=== PATIENT | male | born 1940 | race Caucasian/White ===

== ENCOUNTER 2020-09-01 07:30 | Outpatient (CLI) | payer MEDICARE ==
--- NOTE | 2020-09-01 09:45 | MRI Report ---
PROCEDURE: Lumbar Spine W/O INDICATIONS: LOW BACK PAIN W/PROGRESSIVE SCIATICA AND LEG PAIN TECHNIQUE: Noncontrast sagittal T1 spin echo and T2 fast echo, sagittal STIR, axial T1 and T2 fast spin echo thr ough the lumbar spine. In cases with scoliosis, additional coronal T2 fast spin echo may be performe d. COMPARISON: None. FINDINGS: Image quality: Diagnostic, with note made of motion artifact. Alignment and Curvature: There is normal bony alignment. Bone Marrow: Marrow is of normal overall signal. No acute vertebral body compression fractures. Spinal Cord: Conus medullaris terminates at the T12-L1 level. Visualized cord demonstrates normal s ignal and size. Paraspinous Soft Tissues: No paravertebral masses. Left kidney parapelvic cysts are incidentally no alejandra. T12-L1: Mild loss of disc height and disc signal are seen. No significant neural foraminal or cristian tral canal narrowing can be seen. L1-L2: The disc height is well-preserved. There is loss of disc signal seen. Mild disc bulge is s een. Moderate bilateral neuroforaminal narrowing is seen, left worse than right. Minimal central can al narrowing is seen. L2-L3: Mild loss of disc height and disc signal are seen. Moderate disc bulge is seen, which is ec centric to the right. There is a central disc protrusion seen. Mild facet hypertrophy is seen. Ther e is moderate left-sided and moderate to severe right-sided neuroforaminal narrowing seen at this lev el. Minimal associated compression can be seen upon the exiting nerve roots. At least moderate centra l canal narrowing is seen. L3-L4: Loss of disc signal is seen. Minimal loss of disc height is seen. Moderate to prominent disc bulge is seen, with a central disc protrusion. Mild to moderate facet hypertrophy is seen at this le emna. There is moderate to severe bilateral neuroforaminal narrowing seen, left worse than right. Comp ression is seen upon the exiting nerve roots. Moderate to severe central canal narrowing is seen, as on series 701 image 19. L4-L5: Mild loss of disc height and disc signal are seen. Moderate disc bulge is seen at this leve l. There is a mild central disc protrusion. Moderate facet hypertrophy is seen. There is moderate to severe bilateral neuroforaminal narrowing seen, left worse than right. Compression is seen upon th e exiting nerve roots. Moderate central canal narrowing is seen. L5-S1: The disc height and disc signal are well preserved. Minimal disc bulge is seen. Mild facet hypertrophy is seen. There is moderate bilateral neuroforaminal narrowing seen, left worse than righ t. No significant central canal narrowing is seen. IMPRESSION: Multiple levels of lumbar spine degenerative change are seen, which are overall worst at the L3-L4 level, where there is moderate to severe central canal narrowing. Moderate to severe bilateral neuroforaminal narrowing is seen at L3-L4 and L4-L5, and there is modera te to severe right-sided and moderate left-sided neuroforaminal narrowing seen at L2-L3. There is ass ociated compression upon the exiting nerve roots. Reviewed by: Karl Frias MD on 09/01/2020 8:44 AM [place] Approved by: Karl Frias MD on 09/01/2020 8:44 AM [facility] Station ID: [id number]
== END 2020-09-01 07:31 | disposition home or self-care (01) ==
LOC: DI 07:30
PROVIDERS: ATTEND Family Medicine
DX: M51.36 Other intervertebral disc degeneration, lumbar region (principal); M48.061 Spinal stenosis, lumbar region without neurogenic claudication; M47.816 Spondylosis without myelopathy or radiculopathy, lumbar region; M47.817 Spondylosis without myelopathy or radiculopathy, lumbosacral region; M51.35 Other intervertebral disc degeneration, thoracolumbar region
CPT/HCPCS: 72148

== ENCOUNTER 2021-07-18 18:49 | Emergency (ER) | payer MEDICARE ==
[2021-07-18 19:12] VITALS: BP 161/68
== END 2021-07-18 19:13 | disposition left against medical advice (07) ==
LOC: ED 18:49
DX: Z53.21 Procedure and treatment not carried out due to patient leaving prior to being seen by health care provider (principal)

== ENCOUNTER 2024-05-04 11:59 | Outpatient (CLI) | payer MEDICARE | END 2024-05-04 23:59 | disposition critical access hospital (66) | LOC: EMS 11:59 | DX: S79.922A Unspecified injury of left thigh, initial encounter (principal); V18.0XXA Pedal cycle driver injured in noncollision transport accident in nontraffic accident, initial encounter; Y93.55 Activity, bike riding; Y92.838 Other recreation area as the place of occurrence of the external cause | CPT/HCPCS: A0425; A0427 ==

== ENCOUNTER 2024-05-04 12:14 | Inpatient (IN) | payer MEDICARE ==
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
[2024-05-04] MEDS ORDERED: ONDANSETRON 4 MG/2 ML VIAL IVP PRN ×2 (12:49→16:26)
[2024-05-04] MEDS ORDERED: HYDROcod/ACETAM 5/325 MG TABLET PO PRN (12:49)
[2024-05-04] MEDS ORDERED: ACETAMINOPHEN 325 MG TABLET PO PRN (12:49)
[2024-05-04] MEDS ORDERED: HYDROmorphone 0.5 MG/0.5 ML SYRINGE IVP PRN ×2 (12:49→16:26)
[2024-05-04] MEDS ORDERED: ONDANSETRON ODT 4 MG TABLET TL PRN (12:49)
--- NOTE | 2024-05-04 13:02 | XRAY Report ---
PROCEDURE: Hip w/Pelvis 2-3V LT INDICATIONS: hip inj TECHNIQUE: An AP view the pelvis and a crosstable lateral of the hip were acquired. COMPARISON: None. FINDINGS: Bones: Comminuted, displaced intertrochanteric fracture of the left hip. No dislocation. No suspicio us bony lesions. Soft tissues: No suspicious soft tissue calcifications or masses. IMPRESSION: Comminuted, displaced intratrochanteric fracture of the left hip Reviewed by: Shayne Christianson MD on 05/04/2024 1:01 PM PDT Approved by: Shayne Christianson MD on 05/04/2024 1:01 PM PDT Station ID: [id number]
[2024-05-04 13:11] LABS: BASOPHILS % (AUTO) 0.2 %; EOSINOPHILS # (AUTO) 0.1 10^3/uL (0.0-0.7); EOSINOPHILS % (AUTO) 0.6 %; HCT - HEMATOCRIT 35.9 % (42.0-52.0); HGB - HEMOGLOBIN 11.8 g/dL (14.0-18.0); LYMPHOCYTES # (AUTO) 0.9 10^3/uL (1.5-3.5); LYMPHOCYTES % (AUTO) 8.8 %; MEAN CORPUSCULAR HEMOGLOBIN 29.6 pg (27.0-31.0); MEAN CORPUSCULAR HGB CONC 32.9 g/dL (32.0-36.0); MEAN PLATELET VOLUME 10.3 fL (7.4-11.4); MONOCYTES # (AUTO) 0.5 10^3/uL (0.0-1.0); MONOCYTES % (AUTO) 5.1 %; NEUTROPHILS # (AUTO) 8.4 10^3/uL (1.5-6.6); PLT - PLATELET COUNT 154 10^3/uL (130-450); RED BLOOD COUNT 3.99 10^6/uL (4.70-6.10); RED CELL DISTRIBUTION WIDTH 12.7 % (12.0-15.0); WHITE BLOOD COUNT 9.9 x10^3/uL (4.8-10.8)
--- NOTE | 2024-05-04 13:16 | PHARMACY PROGRESS NOTE ---
- Best Possible Medication History Admit Date and Time: 05/04/24 1244 Processed by: Pharmacy Medications reviewed in ED?: Yes Medication History completed: Yes Patient Interview: Completed Secondary Source(s): Spouse/Significant other, Insurance records As the person ultimately responsible for medication therapy, providers are able to order a medication from an existing home medication list in [facility] via the "Reconcile Routine" prior to Confirmation of that medication by developer support engineer. Such practice is discouraged except when the physician, in their clinical judgment, deems that a medical need exists for a medication without regard to previous use.
[2024-05-04 13:17] LABS: INR 1.1 (0.8-1.2); PT - PROTHROMBIN TIME 12.4 secs (9.9-12.6)
[2024-05-04 13:28] LABS: ALBUMIN 3.6 g/dL (3.2-5.5); ALBUMIN/GLOBULIN RATIO 1.6 (1.0-2.2); BILIRUBIN,TOTAL 0.6 mg/dL (0.2-1.0); CALCIUM 9.1 mg/dL (8.5-10.3); CREATININE 1.6 mg/dL (0.6-1.3); POTASSIUM 4.5 mmol/L (3.5-4.5); TOTAL PROTEIN 5.9 g/dL (6.4-8.9)
[2024-05-04] MEDS: HYDROmorphone 1 MG/ML CARPUJECT IVP STA (13:43)
[2024-05-04] MEDS: SODIUM CHLORIDE FLUSH 0.9% 10 ML SYRINGE IVP PRN (13:52)
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
[2024-05-04] MEDS ORDERED: fentaNYL 250 MCG/5 ML VIAL IVP PRN (16:10)
[2024-05-04] MEDS ORDERED: DEXAMETHASONE 4 MG/ML VIAL ONE (16:11)
[2024-05-04] MEDS ORDERED: PROPOFOL 200 MG/20 ML VIAL IVP ONE (16:11)
[2024-05-04] MEDS ORDERED: ROCURONIUM 50 MG/5 ML VIAL ONE (16:11)
[2024-05-04] MEDS ORDERED: ROPIVACAINE 0.2% PF 10 ML VIAL ONE (16:11)
[2024-05-04] MEDS ORDERED: ONDANSETRON 4 MG/2 ML VIAL ONE (16:11)
[2024-05-04] MEDS ORDERED: fentaNYL 100 MCG/2 ML VIAL ONE (16:12)
[2024-05-04] MEDS ORDERED: ceFAZolin 2 GM VIAL ONE (16:13)
[2024-05-04] MEDS ORDERED: MIDAZOLAM 2 MG/2 ML VIAL ONE (16:18)
[2024-05-04] MEDS ORDERED: fentaNYL 100 MCG/2 ML VIAL IVP PRN (16:26)
[2024-05-04] MEDS ORDERED: NALOXONE 0.4 MG/ML VIAL IVP PRN (16:26)
[2024-05-04] MEDS ORDERED: ePHEDrine 50 MG/ML VIAL IVP PRN (16:26)
[2024-05-04] MEDS ORDERED: ATROPINE ABBOJECT 1 MG/10 ML SYRINGE IVP PRN (16:26)
[2024-05-04] MEDS ORDERED: MORPHINE 2 MG/ML CARPUJECT IVP PRN (16:26)
--- NOTE | 2024-05-04 16:26 | ANESTHESIA ---
Pre-Anesthesia VS, & Labs - Diagnosis Diagnosis Left intertrochancteri/subtrochancteric hip fracture - Procedure L hip nailing Vital Signs: Temp Pulse Resp BP Pulse Ox O2 Flow Rate 37.1 C 50 L 14 148/56 H 96 05/04/24 14:22 05/04/24 14:22 05/04/24 14:22 05/04/24 14:22 05/04/24 14:22 Height: 5 ft 9 in Weight (kg): 79.379 kg Body Mass Index: 25.8 BMI Classification: Overweight - NPO >8 hours - Lab Results Current Lab Results: Laboratory Tests 05/04/24 13:06: Sodium 138, Potassium 4.5, Chloride 107, Carbon Dioxide 27, Anion Gap 4.0 L, BUN 28 H, Creatinine 1.6 H, Estimated GFR (MDRD) 42 L, Glucose 101, Calcium 9.1, Total Bilirubin 0.6, AST 16, ALT 9 L, Alkaline Phosphatase 45, Total Protein 5.9 L, Albumin 3.6, Globulin 2.3, Albumin/Globulin Ratio 1.6 05/04/24 13:06: PT 12.4, INR 1.1 05/04/24 13:06: WBC 9.9, RBC 3.99 L, Hgb 11.8 L, Hct 35.9 L, MCV 90.0, MCH 29.6, MCHC 32.9, RDW 12.7, Plt Count 154, MPV 10.3, Neut # (Auto) 8.4 H, Lymph # (Auto) 0.9 L, [place] # (Auto) 0.5, Eos # (Auto) 0.1, Baso # (Auto) 0.0, Absolute Nucleated RBC 0.00, Nucleated RBC % 0.0 Fish Bones: 05/04/24 13:06 05/04/24 13:06 Home Medications and Allergies Home Medications: Ambulatory Orders Vit A/Vit C/Vit E/Zinc/Copper [Eye Multivitamin Tablet] 1 each PO BID 05/04/24 Active Medications Acetaminophen (Acetaminophen 325 Mg Tablet) 650 mg PO Q4HR PRN PRN Reason: Pain 1 to 4, or Fever Hydrocodone Bitart/Acetaminophen (Hydrocod/Acetam 5/325 Mg Tablet) 1 tab PO Q4HR PRN PRN Reason: Pain 5 to 7 Amlodipine Besylate (Amlodipine 5 Mg Tablet) 10 mg PO HS [facility] Aspirin (Aspirin Ec 81 Mg Tablet) 81 mg PO BID [facility] Docusate Sodium (Docusate Sodium 100 Mg Capsule) 100 mg PO BID PRN PRN Reason: Constipation Fentanyl (Fentanyl 250 Mcg/5 Ml Vial) 25 mcg IVP Q2HR PRN PRN Reason: Severe Breakthrough pain(8-10) Gabapentin (Gabapentin 300 Mg Capsule) 1,200 mg PO HS [facility] Hydromorphone HCl (Hydromorphone 0.5 Mg/0.5 Ml Syringe) 0.5 mg IVP Q2H PRN PRN Reason: Pain 8 to 10 Sodium Chloride (Normal Saline 0.9%) 1,000 mls @ 100 mls/hr IV .Q10H [facility] Stop: 05/05/24 00:59 Cefazolin Sodium 2 gm/ Sodium (Chloride) 100 mls @ 200 mls/hr IV Q8H [facility] Stop: 05/05/24 03:29 Sodium Chloride (Normal Saline 0.9%) 1,000 mls @ 80 mls/hr IV .[id number] [facility] Ondansetron HCl (Ondansetron Odt 4 Mg Tablet) 4 mg TL Q6HR PRN PRN Reason: Nausea / Vomiting Ondansetron HCl (Ondansetron 4 Mg/2 Ml Vial) 4 mg IVP Q6HR PRN PRN Reason: Nausea / Vomiting Oxycodone HCl (Oxycodone 5 Mg Tablet) 5 mg PO Q6HR PRN PRN Reason: Severe Breakthrough pain(8-10) Pramipexole Dihydrochloride (Pramipexole 0.25 Mg Tablet) 1 mg PO HS [facility] Sodium Chloride (Sodium Chloride Flush 0.9% 10 Ml Syringe) 10 ml IVP PRN PRN PRN Reason: NEEDED PER PROVIDER ORDERS Last Admin: 05/04/24 13:52 Dose: 10 ml Sodium Chloride (Sodium Chloride Flush 0.9% 10 Ml Syringe) 10 ml IVP 0100,0900,1700 [facility] Tamsulosin HCl (Tamsulosin 0.4 Mg Capsule) 0.4 mg PO HS [facility] Gabapentin [Neurontin] 1,200 mg PO HS 07/18/21 Lisinopril [Zestril] 20 mg PO HS 07/18/21 Pramipexole Di-HCl [Mirapex] 1 mg PO HS 07/18/21 Tamsulosin [Flomax] 0.4 mg PO HS 07/18/21 amLODIPine [Norvasc] 10 mg PO HS 07/18/21 Vit A/Vit C/Vit E/Zinc/Copper [Eye Multivitamin Tablet] 1 each PO BID 05/04/24 Allergies/Adverse Reactions: Allergies Allergy/AdvReac Type Severity Reaction Status Date / Time No Known Drug Allergies Allergy Verified 05/04/24 12:51 Anes History & Medical History - Anesthetic History Anesthesia Complications: reports: No previous complications Family history of Anesthesia Complications: Denies Family history of Malignant Hyperthermia: Denies - Medical History Cardiovascular: reports: Hypertension Pulmonary: reports: None Gastrointestinal: reports: None Urinary: reports: Renal insuffiency Neuro: reports: Other (RLS) Musculoskeletal: reports: Gout, Other (significant compression L1-L5 with bulging discs, nerve compression, severe canal stenosis. see MRI 2022) Endocrine/Autoimmune: reports: None Skin: reports: None Smoking Status: Never smoker Psychosocial: reports: No issues indicated History of Cancer?: No - Surgical History General: reports: Other (B inguinal hernai repair at 3yo) Eyes Ears Nose Throat (EENT): reports: Tonsil/Adenoidectomy Exam General: Alert, Oriented x3, Cooperative Dental: WNL Mouth Openin Fingerbreadth Neck Mobility: Normal Mallampati classification: II Thyromental Distance: 4-6 cm Respiratory: Lungs clear Cardiovascular: Regular rate Plan Anesthesia Type: General, Fascia Iliaca Block Consent for Procedure(s) Verified and Reviewed: Yes Code Status: Attempt Resuscitation ASA classification: 2-Mild systemic disease Is this case an emergency?: Yes
[2024-05-04] MEDS ORDERED: LACTATED RINGERS 1,000 ML IV SCH (17:00)
[2024-05-04] MEDS ORDERED: ePHEDrine 50 MG/ML VIAL IVP ONE (17:08)
[2024-05-04] MEDS ORDERED: BUPIVACAINE 0.5%-EPI 1:200000 PF 10 ML VIAL ONE (17:19)
[2024-05-04] MEDS: BUPIVACAINE 0.5%-EPI 1:200000 PF 30 ML VIAL SUBQ ONE ×2 (17:22)
[2024-05-04] MEDS ORDERED: ACETAMINOPHEN 1,000 MG/100 ML 1,000 MG/100 ML BAG IV ONE (17:56)
[2024-05-04] MEDS ORDERED: NEOSTIGMINE 1 MG/1 ML 10 ML MDV ONE (18:08)
--- NOTE | 2024-05-04 18:35 | OPERATIVE REPORT ---
Operative Report - General Admit Date: 05/04/24 Procedure Date: 05/04/24 Planned Procedure: Closed reduction and long InterTAN nailing of left intertrochanteric/subtrochanteric hip fracture Pre-Op Diagnosis: Closed displaced left subtrochanteric/intertrochanteric hip fracture Procedure Performed: Closed reduction and long InterTAN nailing of left subtrochanteric/intertrochanteric hip fracture Post Op Diagnosis: Same - Procedure Note Primary Surgeon: Alpa Genao MD Secondary Surgeon: Regino Donohue< PA Anesthesia Provider: Gladys Grajeda CRNA Anesthesia Technique: General ET tube IV Fluids (mL): 1,200 Estimated Blood Loss (mL): 200 Complications: None - Other Other Information/Narrative: Description of procedure: Patient was taking to the operating room from the emergency room for his left hip surgery. After he was placed under a general anesthetic he was positioned supine on the [place] fracture table. His left lower extremity was then placed into axial traction with approximately a 10 degree internal rotation that. The right leg was then flexed at the hip and widely abducted. Leg was held in the well-leg flores. Fluoroscopic views were then taken of the left hip so we could see adequately that the hip fracture had been reduced nicely. We could also visualize the femoral head in both AP and lateral projections. We then prepped and draped the lateral aspect of the proximal thigh in usual fashion. Through an oblique skin incision we dissected down through the fascia Lotta to the tip of the greater trochanter. This is where we placed the threaded tip guidewire. Confirming its location fluoroscopically we then advanced this guidepin down to the level of the subtrochanteric region of the proximal femur. Its location and depth was confirmed both in the AP and lateral projections. We then used the 17 mm channel reamer to ream the proximal femur from the tip of the greater trochanter down to the subtrochanteric region. Removed the channel reamer and the ball and the guide. Next the ball-tipped guide was then inserted manually down the femoral canal to about the level of the superior border of the patella. Its intraosseous location was confirmed with AP and lateral projections proximally and distally. Satisfied with this we then proceeded this serially reamed the femoral canal using flexible reamers over our ball-tipped guide. Starting at the 9 mm reamer we advanced a 1 mm increments to 11 mm. Then we continued to enlarge the canal with the flexible reamers from 11-13 and half millimeter increments. This point we then selected our long InterTAN nail. It was a left nail 42 cm length (this measurement been made from the inserted ball-tipped guide), 125 degree angulation proximally. This nail was then attached to of the insertion guide. We then proceeded to insert the nail manually down the prepared femoral canal. Using the C arm fluoroscopy we advanced the nail with a mallet until the oblique hole of the proximal end of our nail was in line with the central axis of the femoral neck and head. Inserting our pin guide into the insertion apparatus we made this skin incision and advanced this pin guide with the trocar in place to the lateral femoral cortex. We then used the threaded tip guidewire under power to advance this guidepin through the proximal femur femoral neck and into the femoral head. It took several attempts to put the pin in the proper position AP and lateral projection. At the end of our insertion we were satisfied with the depth of the pin to within 3 to 4 mm in both AP and lateral projections and the sub near the subchondral bone of the femoral head and that the track was near the central axis of the femoral neck in both AP and lateral projection. The direct measuring guide was used and we determined 150 mm x 11 mm hip lag screw would be used. We then removed the pin guide and followed with the hip lag screw reamer. The femoral neck and femoral head was then reamed under power over our inserted guidepin. After removing our reamer we then inserted manually the selected single subtrochanteric hip lag screw through the proximal end of our inserted nail. Fluoroscopic views demonstrated good position and depth of our hip lag screw in both AP and lateral projections. The screw head was within 3 to 4 mm in both AP and lateral projections. Satisfied with the insertion and satisfied with the quality of of the fixation of our screw as we advanced it we then locked the proximal screw in the proximal end of our nail until it was snug and backed off 90 degrees. Then we used a ball-tipped guide to remove the insertion apparatus off the proximal end of our nail as well. Final x-rays were then taken in the AP and lateral projection at the hip as well as down toward the knee. We were satisfied with the reduction and impaction of our fracture in all views and satisfied with the intramedullary location of our nail. We then irrigated the wounds out thoroughly with saline. We closed the fascia jeanie layer in both incision using simple interrupted stitches of 2-0 Vicryl. Finally skin floridalma used approximate the skin edges. We then washed the wounds and remigio lied silver dressing to both wounds. Should be noted after we put the leg in traction the amount of traction did appear to compromise the circulation in the patient's toes and that they were cooler and appeared bluish in color. After we had inserted the nail and our hip lag screw we released the tension on the leg and the color of the toes pinked up nicely and became quite warm. The amount of time from the start of surgery until we released the tension on the leg was 40 minutes. Estimated blood loss: 20 mL Replacement: 1200 mL of crystalloid Intraoperative complications: None Plan: Patient will be advanced as tolerated with weightbearing as tolerated with a walker ambulation beginning tomorrow.
[2024-05-04] MEDS: LACTATED RINGERS 1,000 ML IV ONE (18:43)
--- NOTE | 2024-05-04 19:31 | XRAY Report ---
PROCEDURE: OR C-Arm Procedure INDICATIONS: fx FLUORO TIME: 0.8 MIN TECHNIQUE: 4 spot fluoroscopic intraoperative images of the left hip and femur. COMPARISON: Hip/pelvis radiographs 05/04/2024 FINDINGS: Intraoperative images demonstrate internal fixation of the proximal femoral fracture with intramedull alma nail and dynamic hip screw. Osseous alignment has improved. IMPRESSION: Expected intraoperative appearance of proximal femoral fixation hardware with improved osseous alignm ent. Reviewed by: Denzel Seay MD on 05/04/2024 7:30 PM PDT Approved by: Denzel Seay MD on 05/04/2024 7:30 PM PDT Station ID: [id number]
[2024-05-04] MEDS: SODIUM CHLORIDE 0.9% 1,000 ML IV SCH ×2 (19:49→19:50)
[2024-05-04] MEDS: ceFAZolin (2G) 2 GM in SODIUM CHLORIDE 0.9% MINIBAG 100 ML IV SCH (19:49)
[2024-05-04] MEDS: SODIUM CHLORIDE FLUSH 0.9% 10 ML SYRINGE IVP SCH (19:50)
[2024-05-04] MEDS: GABAPENTIN 300 MG CAPSULE PO SCH (21:36)
[2024-05-04] MEDS: PRAMIPEXOLE 0.25 MG TABLET PO SCH (21:36)
[2024-05-04] MEDS: TAMSULOSIN 0.4 MG CAPSULE PO SCH (21:36)
[2024-05-04] MEDS: amLODIPine 5 MG TABLET PO SCH (21:36)
[2024-05-05 06:17] LABS: BASOPHILS % (AUTO) 0.1 %; HCT - HEMATOCRIT 29.9 % (42.0-52.0); HGB - HEMOGLOBIN 9.8 g/dL (14.0-18.0); LYMPHOCYTES # (AUTO) 0.6 10^3/uL (1.5-3.5); LYMPHOCYTES % (AUTO) 5.7 %; MEAN CORPUSCULAR HEMOGLOBIN 29.4 pg (27.0-31.0); MEAN CORPUSCULAR HGB CONC 32.8 g/dL (32.0-36.0); MEAN CORPUSCULAR VOLUME 89.8 fL (80.0-94.0); MEAN PLATELET VOLUME 10.8 fL (7.4-11.4); MONOCYTES # (AUTO) 0.6 10^3/uL (0.0-1.0); MONOCYTES % (AUTO) 5.7 %; NEUTROPHILS # (AUTO) 9.5 10^3/uL (1.5-6.6); PLT - PLATELET COUNT 151 10^3/uL (130-450); RED BLOOD COUNT 3.33 10^6/uL (4.70-6.10); RED CELL DISTRIBUTION WIDTH 12.7 % (12.0-15.0); WHITE BLOOD COUNT 10.8 x10^3/uL (4.8-10.8)
[2024-05-05 06:33] LABS: CALCIUM 8.2 mg/dL (8.5-10.3); CREATININE 1.5 mg/dL (0.6-1.3); POTASSIUM 4.7 mmol/L (3.5-4.5)
--- NOTE | 2024-05-05 06:48 | ANESTHESIA POST OP EVALUATION ---
Anesthesia Post Eval - Post Anesthesia Eval Vitals: Last Vital Signs Temp 36.3 C L 05/05/24 04:04 Pulse 72 05/05/24 04:04 Resp 18 05/05/24 04:04 BP 96/52 L 05/05/24 04:04 Pulse Ox 94 05/05/24 04:04 O2 Flow Rate CV Function Including HR & BP: Stable Pain Control: Satisfactory Nausea & Vomiting: Negative Mental Status: Baseline Respiratory Status: Airway Patent Hydration Status: Satisfactory Anesthesia Complications: None
[2024-05-05] MEDS: polyethylene glycoL 3350 17 GM PACKET PO SCH (09:55)
[2024-05-05] MEDS: ASPIRIN EC 81 MG TABLET PO SCH (10:52)
--- NOTE | 2024-05-05 12:11 | PROVIDER PROGRESS NOTE ---
Subjective - Prog Note Date Prog Note Date: 05/05/24 Prog Note Time: 12:08 - Subjective Pt reports feeling: Improved Objective - Vital Signs/Intake & Output Vital Signs: Vital Signs x48h Temp Pulse Resp BP Pulse Ox 05/05/24 08:18 36.7 C 67 18 120/54 L 96 Intake & Output: Intake & Output 05/02/24 05/03/24 05/04/24 05/05/24 23:59 23:59 23:59 23:59 Intake Total 250 1690 Output Total 700 2750 Balance -450 -1060 - Lab Results Fish Bones: 05/05/24 05:46 05/05/24 05:46 Other Labs: Lab Results x24hrs 05/05/24 05/05/24 05/05/24 Range/Units 08:38 05:46 05:46 WBC (4.8-10.8) x10^3/uL RBC (4.70-6.10) 10^6/uL Hgb (14.0-18.0) g/dL Hct (42.0-52.0) % MCV (80.0-94.0) fL MCH (27.0-31.0) pg MCHC (32.0-36.0) g/dL RDW (12.0-15.0) % Plt Count (130-450) 10^3/uL MPV (7.4-11.4) fL Neut # (Auto) (1.5-6.6) 10^3/uL Lymph # (Auto) (1.5-3.5) 10^3/uL [place] # (Auto) (0.0-1.0) 10^3/uL Eos # (Auto) (0.0-0.7) 10^3/uL Baso # (Auto) (0.0-0.1) 10^3/uL Absolute Nucleated RBC x10^3/uL Nucleated RBC % /100WBC PT (9.9-12.6) secs INR (0.8-1.2) Sodium 135 (135-145) mmol/L Potassium 4.7 H (3.5-4.5) mmol/L Chloride 105 (101-111) mmol/L Carbon Dioxide 25 (21-32) mmol/L Anion Gap 5.0 L (6-13) BUN 23 H (6-20) mg/dL Creatinine 1.5 H (0.6-1.3) mg/dL Estimated GFR (MDRD) 45 L (>89) Glucose 137 H (74-104) mg/dL Calcium 8.2 L (8.5-10.3) mg/dL Total Bilirubin (0.2-1.0) mg/dL AST (10-42) IU/L ALT (10-60) IU/L Alkaline Phosphatase (42-121) IU/L Total Protein (6.4-8.9) g/dL Albumin (3.2-5.5) g/dL Globulin (2.1-4.2) g/dL Albumin/Globulin Ratio (1.0-2.2) Blood Type O POSITIVE Blood Type Recheck O POSITIVE Antibody Screen NEGATIVE 05/05/24 05/04/24 05/04/24 Range/Units 05:46 13:06 13:06 WBC 10.8 (4.8-10.8) x10^3/uL RBC 3.33 L (4.70-6.10) 10^6/uL Hgb 9.8 L (14.0-18.0) g/dL Hct 29.9 L (42.0-52.0) % MCV 89.8 (80.0-94.0) fL MCH 29.4 (27.0-31.0) pg MCHC 32.8 (32.0-36.0) g/dL RDW 12.7 (12.0-15.0) % Plt Count 151 (130-450) 10^3/uL MPV 10.8 (7.4-11.4) fL Neut # (Auto) 9.5 H (1.5-6.6) 10^3/uL Lymph # (Auto) 0.6 L (1.5-3.5) 10^3/uL [place] # (Auto) 0.6 (0.0-1.0) 10^3/uL Eos # (Auto) 0.0 (0.0-0.7) 10^3/uL Baso # (Auto) 0.0 (0.0-0.1) 10^3/uL Absolute Nucleated RBC 0.00 x10^3/uL Nucleated RBC % 0.0 /100WBC PT 12.4 (9.9-12.6) secs INR 1.1 (0.8-1.2) Sodium 138 (135-145) mmol/L Potassium 4.5 (3.5-4.5) mmol/L Chloride 107 (101-111) mmol/L Carbon Dioxide 27 (21-32) mmol/L Anion Gap 4.0 L (6-13) BUN 28 H (6-20) mg/dL Creatinine 1.6 H (0.6-1.3) mg/dL Estimated GFR (MDRD) 42 L (>89) Glucose 101 (74-104) mg/dL Calcium 9.1 (8.5-10.3) mg/dL Total Bilirubin 0.6 (0.2-1.0) mg/dL AST 16 (10-42) IU/L ALT 9 L (10-60) IU/L Alkaline Phosphatase 45 (42-121) IU/L Total Protein 5.9 L (6.4-8.9) g/dL Albumin 3.6 (3.2-5.5) g/dL Globulin 2.3 (2.1-4.2) g/dL Albumin/Globulin Ratio 1.6 (1.0-2.2) Blood Type Blood Type Recheck Antibody Screen 05/04/24 Range/Units 13:06 WBC 9.9 (4.8-10.8) x10^3/uL RBC 3.99 L (4.70-6.10) 10^6/uL Hgb 11.8 L (14.0-18.0) g/dL Hct 35.9 L (42.0-52.0) % MCV 90.0 (80.0-94.0) fL MCH 29.6 (27.0-31.0) pg MCHC 32.9 (32.0-36.0) g/dL RDW 12.7 (12.0-15.0) % Plt Count 154 (130-450) 10^3/uL MPV 10.3 (7.4-11.4) fL Neut # (Auto) 8.4 H (1.5-6.6) 10^3/uL Lymph # (Auto) 0.9 L (1.5-3.5) 10^3/uL [place] # (Auto) 0.5 (0.0-1.0) 10^3/uL Eos # (Auto) 0.1 (0.0-0.7) 10^3/uL Baso # (Auto) 0.0 (0.0-0.1) 10^3/uL Absolute Nucleated RBC 0.00 x10^3/uL Nucleated RBC % 0.0 /100WBC PT (9.9-12.6) secs INR (0.8-1.2) Sodium (135-145) mmol/L Potassium (3.5-4.5) mmol/L Chloride (101-111) mmol/L Carbon Dioxide (21-32) mmol/L Anion Gap (6-13) BUN (6-20) mg/dL Creatinine (0.6-1.3) mg/dL Estimated GFR (MDRD) (>89) Glucose (74-104) mg/dL Calcium (8.5-10.3) mg/dL Total Bilirubin (0.2-1.0) mg/dL AST (10-42) IU/L ALT (10-60) IU/L Alkaline Phosphatase (42-121) IU/L Total Protein (6.4-8.9) g/dL Albumin (3.2-5.5) g/dL Globulin (2.1-4.2) g/dL Albumin/Globulin Ratio (1.0-2.2) Blood Type Blood Type Recheck Antibody Screen - Other Results/Comments Other Results/Comments: Examination: Patient's hip dressing wounds are stable. Some mild pain with hip rotation noted. Patient moves his toes voluntarily. Sensation intact throughout. Good capillary filling noted. Patient apparently has been up ambulating weightbearing as tolerated with assistance to the bathroom. Laboratory: Hematocrit 30, Assessment/Plan - Problem List (1) Closed left hip fracture Impression: Patient doing well postoperatively. Continue weightbearing as tolerated on his left lower extremity. Walker ambulating weightbearing as tolerated per physical therapy. Qualifiers: Encounter type: initial encounter Qualified Code(s): S72.002A - Fracture of unspecified part of neck of left femur, initial encounter for closed fracture
--- NOTE | 2024-05-05 12:13 | PROVIDER PROGRESS NOTE ---
Assessment/Plan - Problem List (1) Closed left hip fracture Qualifiers: Qualified Code(s): S72.002A - Fracture of unspecified part of neck of left femur, initial encounter for closed fracture Assessment/Plan: (1) Closed left hip fracture Conclusion/Plan: --Underwent Closed reduction and long InterTAN nailing of left intertrochanteric/subtrochanteric hip fracture --DVT ppx with ASA --Continue to monitor post-op hemoglobin. --Plan for PT/OT on Tuesday. Qualifiers: Encounter type: initial encounter Qualified Code(s): S72.002A - Fracture of unspecified part of neck of left femur, initial encounter for closed fracture (2) CKD (chronic kidney disease) Conclusion/Plan: --Renal function at his baseline. (3) HTN (hypertension) Conclusion/Plan: --Continue home amlodipine. Blood pressures are normotensive today. Dispo: Inpatient until evaluated by PT/OT on Tuesday. - Current Meds Current Meds: Current Medications Generic Name Dose Route Start Last Admin Trade Name Yanet PRN Reason Stop Dose Admin Aspirin 81 mg 05/05/24 09:00 05/05/24 10:52 Aspirin Ec 81 Mg Tablet PO 81 mg BID MEGAN Administration Gabapentin 1,200 mg 05/04/24 21:00 05/04/24 21:36 Gabapentin 300 Mg Capsule PO 1,200 mg HS MEGAN Administration Polyethylene Glycol 17 gm 05/05/24 09:00 05/05/24 09:55 Polyethylene Glycol 3350 17 Gm Packet PO 17 gm DAILY MEGAN Administration Pramipexole Dihydrochloride 1 mg 05/04/24 21:00 05/04/24 21:36 Pramipexole 0.25 Mg Tablet PO 1 mg HS MEGAN Administration Sodium Chloride 10 ml 05/04/24 12:49 05/04/24 13:52 Sodium Chloride Flush 0.9% 10 Ml Syringe IVP 10 ml PRN PRN Administration NEEDED PER PROVIDER ORDERS Sodium Chloride 10 ml 05/04/24 17:00 05/05/24 10:52 Sodium Chloride Flush 0.9% 10 Ml Syringe IVP 10 ml 0100,0900,1700 MEGAN Administration Tamsulosin HCl 0.4 mg 05/04/24 21:00 05/04/24 21:36 Tamsulosin 0.4 Mg Capsule PO 0.4 mg HS MEGAN Administration - Lab Result Fish Bone Diagrams: 05/05/24 05:46 05/05/24 05:46 - Additional Planning My Orders: My Active Orders 05/04/24 12:49 Activity Orders [RC] Q2HR IO [RC] IOSHIFT Incentive Spirometry - RT [RC] TID Initiate Bowel Care Protocol [RC] .protocol Initiate Line Care Protocol [RC] QSHIFT Initiate Personal Care Protoco [RC] .protocol Oxygen Therapy [RC] .PRN Vital Signs [RC] 0800,1600,0000 Acetaminophen [Tylenol] 650 mg PO Q4HR PRN HYDROcod/ACETAM 5/325 [[place] 5/325] 1 tab PO Q4HR PRN HYDROmorphone 0.5MG SYRINGE [Dilaudid 0.5MG Syringe] 0.5 mg IVP Q2H PRN Ondansetron Inj [Zofran Inj] 4 mg IVP Q6HR PRN Ondansetron Odt [Zofran Odt] 4 mg TL Q6HR PRN Sodium Chloride Flush 0.9% [Normal Saline Flush 0.9%] 10 ml IVP PRN PRN Code Status [OTHERS] Routine Condition of Patient [OTHERS] Routine DVT Prophylaxis [OTHERS] Routine 05/04/24 12:50 SCDs [RC] QSHIFT 05/04/24 12:51 Orthopedics Consult [CONS] Routine 05/04/24 17:00 Sodium Chloride Flush 0.9% [Normal Saline Flush 0.9%] 10 ml IVP 0100,0900,1700 05/04/24 21:00 Gabapentin [Neurontin] 1,200 mg PO HS Pramipexole [Mirapex] 1 mg PO HS Tamsulosin [Flomax] 0.4 mg PO HS 05/05/24 09:00 polyethylene glycoL 3350 [Miralax] 17 gm PO DAILY 05/06/24 05:00 BMP - BASIC METABOLIC PANEL [CHEM] DAILYLAB CBC [CBC - COMP BLD CT W/AUTO DIFF] [HEME] DAILYLAB 05/07/24 05:00 BMP - BASIC METABOLIC PANEL [CHEM] DAILYLAB CBC [CBC - COMP BLD CT W/AUTO DIFF] [HEME] DAILYLAB 05/08/24 05:00 BMP - BASIC METABOLIC PANEL [CHEM] DAILYLAB CBC [CBC - COMP BLD CT W/AUTO DIFF] [HEME] DAILYLAB 05/09/24 05:00 BMP - BASIC METABOLIC PANEL [CHEM] DAILYLAB CBC [CBC - COMP BLD CT W/AUTO DIFF] [HEME] DAILYLAB Subjective - Subjective Patient Reports: Feeling Better, Resting Comfortably, No Complaints Objective Vital Signs: Vital Signs - 24 hr 05/04/24 05/04/24 05/04/24 12:28 14:22 18:40 Temperature 36.9 C 37.1 C 36.3 C L Heart Rate 65 50 L Heart Rate [ Brachial] Respiratory 18 14 Rate Blood Pressure 131/64 H 148/56 H 134/52 H Blood Pressure [Left Brachial artery] Blood Pressure [Right Brachial artery] O2 Saturation 95 96 100 05/04/24 05/04/24 05/04/24 18:45 18:50 18:55 Temperature 36.3 C L 36.3 C L 36.3 C L Heart Rate 60 61 60 Heart Rate [ Brachial] Respiratory 20 17 16 Rate Blood Pressure 122/59 L 125/53 L 135/57 H Blood Pressure [Left Brachial artery] Blood Pressure [Right Brachial artery] O2 Saturation 100 100 100 05/04/24 05/04/24 05/04/24 19:05 19:15 19:22 Temperature 36.5 C 36.5 C 36.4 C L Heart Rate 57 L 63 59 L Heart Rate [ Brachial] Respiratory 15 12 14 Rate Blood Pressure 132/59 H 130/46 L 118/48 L Blood Pressure [Left Brachial artery] Blood Pressure [Right Brachial artery] O2 Saturation 100 100 97 05/04/24 05/04/24 05/04/24 19:39 20:38 23:57 Temperature 36.7 C 37.0 C 36.5 C Heart Rate Heart Rate [ 60 63 71 Brachial] Respiratory 16 16 18 Rate Blood Pressure Blood Pressure 136/59 H 120/57 L [Left Brachial artery] Blood Pressure 109/57 L [Right Brachial artery] O2 Saturation 96 96 96 05/05/24 05/05/24 04:04 08:18 Temperature 36.3 C L 36.7 C Heart Rate Heart Rate [ 72 67 Brachial] Respiratory 18 18 Rate Blood Pressure Blood Pressure [Left Brachial artery] Blood Pressure 96/52 L 120/54 L [Right Brachial artery] O2 Saturation 94 96 Oxygen O2 Source Room air I&O (Last 24 Hrs): Intake and Output Totals x24h 05/03/24 05/04/24 05/05/24 23:59 23:59 23:59 Intake Total 250 1690 Output Total 700 2750 Balance -450 -1060 General: Alert, Oriented x3, Cooperative, No acute distress Cardiovascular: Regular rate, Normal S1, Normal S2, No murmurs Respiratory: Chest non-tender, No respiratory distress, Breath sounds nml Abdomen: Normal bowel sounds, Soft, No tenderness, No hepatospenomegaly, No masses - Results Results: Laboratory Results WBC 10.8 x10^3/uL (4.8-10.8) 05/05/24 05:46 RBC 3.33 10^6/uL (4.70-6.10) L 05/05/24 05:46 Hgb 9.8 g/dL (14.0-18.0) L 05/05/24 05:46 Hct 29.9 % (42.0-52.0) L 05/05/24 05:46 MCV 89.8 fL (80.0-94.0) 05/05/24 05:46 MCH 29.4 pg (27.0-31.0) 05/05/24 05:46 MCHC 32.8 g/dL (32.0-36.0) 05/05/24 05:46 RDW 12.7 % (12.0-15.0) 05/05/24 05:46 Plt Count 151 10^3/uL (130-450) 05/05/24 05:46 MPV 10.8 fL (7.4-11.4) 05/05/24 05:46 Neut # (Auto) 9.5 10^3/uL (1.5-6.6) H 05/05/24 05:46 Lymph # (Auto) 0.6 10^3/uL (1.5-3.5) L 05/05/24 05:46 [place] # (Auto) 0.6 10^3/uL (0.0-1.0) 05/05/24 05:46 Eos # (Auto) 0.0 10^3/uL (0.0-0.7) 05/05/24 05:46 Baso # (Auto) 0.0 10^3/uL (0.0-0.1) 05/05/24 05:46 Absolute Nucleated RBC 0.00 x10^3/uL 05/05/24 05:46 Nucleated RBC % 0.0 /100WBC 05/05/24 05:46 PT 12.4 secs (9.9-12.6) 05/04/24 13:06 INR 1.1 (0.8-1.2) 05/04/24 13:06 Sodium 135 mmol/L (135-145) 05/05/24 05:46 Potassium 4.7 mmol/L (3.5-4.5) H 05/05/24 05:46 Chloride 105 mmol/L (101-111) 05/05/24 05:46 Carbon Dioxide 25 mmol/L (21-32) 05/05/24 05:46 Anion Gap 5.0 (6-13) L 05/05/24 05:46 BUN 23 mg/dL (6-20) H 05/05/24 05:46 Creatinine 1.5 mg/dL (0.6-1.3) H 05/05/24 05:46 Estimated GFR (MDRD) 45 (>89) L 05/05/24 05:46 Glucose 137 mg/dL (74-104) H 05/05/24 05:46 Calcium 8.2 mg/dL (8.5-10.3) L 05/05/24 05:46 Total Bilirubin 0.6 mg/dL (0.2-1.0) 05/04/24 13:06 AST 16 IU/L (10-42) 05/04/24 13:06 ALT 9 IU/L (10-60) L 05/04/24 13:06 Alkaline Phosphatase 45 IU/L (42-121) 05/04/24 13:06 Total Protein 5.9 g/dL (6.4-8.9) L 05/04/24 13:06 Albumin 3.6 g/dL (3.2-5.5) 05/04/24 13:06 Globulin 2.3 g/dL (2.1-4.2) 05/04/24 13:06 Albumin/Globulin Ratio 1.6 (1.0-2.2) 05/04/24 13:06 Blood Type O POSITIVE 05/05/24 05:46 Blood Type Recheck O POSITIVE 05/05/24 08:38 Antibody Screen NEGATIVE 05/05/24 05:46
[2024-05-05] MEDS: SODIUM CHLORIDE 0.9% 500 ML IV ONE (14:45)
[2024-05-06 05:34] LABS: BASOPHILS % (AUTO) 0.1 %; EOSINOPHILS # (AUTO) 0.1 10^3/uL (0.0-0.7); EOSINOPHILS % (AUTO) 1.4 %; HCT - HEMATOCRIT 27.4 % (42.0-52.0); HGB - HEMOGLOBIN 8.9 g/dL (14.0-18.0); LYMPHOCYTES # (AUTO) 1.4 10^3/uL (1.5-3.5); LYMPHOCYTES % (AUTO) 14.1 %; MEAN CORPUSCULAR HEMOGLOBIN 29.4 pg (27.0-31.0); MEAN CORPUSCULAR HGB CONC 32.5 g/dL (32.0-36.0); MEAN CORPUSCULAR VOLUME 90.4 fL (80.0-94.0); MONOCYTES # (AUTO) 1.1 10^3/uL (0.0-1.0); MONOCYTES % (AUTO) 10.7 %; NEUTROPHILS # (AUTO) 7.4 10^3/uL (1.5-6.6); NEUTROPHILS % (AUTO) 73.3 %; PLT - PLATELET COUNT 126 10^3/uL (130-450); RED BLOOD COUNT 3.03 10^6/uL (4.70-6.10); WHITE BLOOD COUNT 10.2 x10^3/uL (4.8-10.8)
[2024-05-06 05:57] LABS: CALCIUM 8.6 mg/dL (8.5-10.3); CREATININE 1.5 mg/dL (0.6-1.3); POTASSIUM 4.1 mmol/L (3.5-4.5)
[2024-05-06] MEDS: DOCUSATE SODIUM 100 MG CAPSULE PO PRN (08:27)
[2024-05-06] MEDS: oxyCODONE 5 MG TABLET PO PRN (08:28)
[2024-05-06] MEDS: FERROUS GLUCONATE 324 MG TABLET PO SCH (08:28)
--- NOTE | 2024-05-06 09:02 | PROVIDER PROGRESS NOTE ---
Subjective - Prog Note Date Prog Note Date: 05/06/24 Prog Note Time: 09:00 - Subjective Pt reports feeling: Improved Objective - Vital Signs/Intake & Output Vital Signs: Vital Signs x48h Temp Pulse Resp BP Pulse Ox 05/06/24 07:54 36.7 C 68 16 122/62 93 Intake & Output: Intake & Output 05/03/24 05/04/24 05/05/24 05/06/24 23:59 23:59 23:59 23:59 Intake Total 250 2540 600 Output Total 700 3330 1520 Balance -450 -790 -920 - Lab Results Fish Bones: 05/06/24 04:45 05/06/24 04:45 Other Labs: Lab Results x24hrs 05/06/24 05/06/24 Range/Units 04:45 04:45 WBC 10.2 (4.8-10.8) x10^3/uL RBC 3.03 L (4.70-6.10) 10^6/uL Hgb 8.9 L (14.0-18.0) g/dL Hct 27.4 L (42.0-52.0) % MCV 90.4 (80.0-94.0) fL MCH 29.4 (27.0-31.0) pg MCHC 32.5 (32.0-36.0) g/dL RDW 13.0 (12.0-15.0) % Plt Count 126 L (130-450) 10^3/uL MPV 11.0 (7.4-11.4) fL Neut # (Auto) 7.4 H (1.5-6.6) 10^3/uL Lymph # (Auto) 1.4 L (1.5-3.5) 10^3/uL [place] # (Auto) 1.1 H (0.0-1.0) 10^3/uL Eos # (Auto) 0.1 (0.0-0.7) 10^3/uL Baso # (Auto) 0.0 (0.0-0.1) 10^3/uL Absolute Nucleated RBC 0.00 x10^3/uL Nucleated RBC % 0.0 /100WBC Sodium 138 (135-145) mmol/L Potassium 4.1 (3.5-4.5) mmol/L Chloride 108 (101-111) mmol/L Carbon Dioxide 26 (21-32) mmol/L Anion Gap 4.0 L (6-13) BUN 26 H (6-20) mg/dL Creatinine 1.5 H (0.6-1.3) mg/dL Estimated GFR (MDRD) 45 L (>89) Glucose 118 H (74-104) mg/dL Calcium 8.6 (8.5-10.3) mg/dL - Other Results/Comments Other Results/Comments: Examination: Patient's dressings were intact. Scant amount of bloody drainage in the dressing. Minimal pain with hip rotation. Patient voluntarily can wiggle his toes. Sensation intact. Laboratory: Hemoglobin 8.9; hematocrit 27 Assessment/Plan - Problem List (1) Closed left hip fracture Impression: Satisfactory postop course. Plan: Patient will again be mobilized as tolerated. Medical walker ambulating weightbearing as tolerated on his left side. Anticipate discharge home in the next few days. Qualifiers: Encounter type: initial encounter Qualified Code(s): S72.002A - Fracture of unspecified part of neck of left femur, initial encounter for closed fracture
[2024-05-06] MEDS: SODIUM CHLORIDE 0.9% 500 ML IV ONE (11:55)
[2024-05-06] MEDS: SENNA 8.6 MG TABLET PO SCH (11:55)
--- NOTE | 2024-05-06 13:04 | PROVIDER PROGRESS NOTE ---
Assessment/Plan - Problem List (1) Closed left hip fracture Qualifiers: Encounter type: initial encounter Qualified Code(s): S72.002A - Fracture of unspecified part of neck of left femur, initial encounter for closed fracture Assessment/Plan: (1) Closed left hip fracture Conclusion/Plan: --Underwent Closed reduction and long InterTAN nailing of left intertrochanteric/subtrochanteric hip fracture --DVT ppx with ASA --Continue to monitor post-op hemoglobin. --Plan for PT/OT on Tuesday. Qualifiers: Encounter type: initial encounter Qualified Code(s): S72.002A - Fracture of unspecified part of neck of left femur, initial encounter for closed fracture (2) CKD (chronic kidney disease) Conclusion/Plan: --Renal function at his baseline. (3) HTN (hypertension) Conclusion/Plan: --Continue home amlodipine. Blood pressures are normotensive today. --He is having some orthostasis likely from the tamsulosin. Will trial him on Midodrine twice daily while he is inpatient. (4) Acute urinary retention --History of BPH. Continue tamsulosin. --Hopeful that this will resolve as he becomes more active and ambulatory. Dispo: Inpatient until evaluated by PT/OT on Tuesday. - Current Meds Current Meds: Current Medications Generic Name Dose Route Start Last Admin Trade Name Freq PRN Reason Stop Dose Admin Aspirin 81 mg 05/05/24 09:00 05/06/24 08:28 Aspirin Ec 81 Mg Tablet PO 81 mg BID MEGAN Administration Docusate Sodium 100 mg 05/04/24 16:10 05/06/24 08:27 Docusate Sodium 100 Mg Capsule PO 100 mg BID PRN Administration Constipation Ferrous Gluconate 324 mg 05/06/24 08:00 05/06/24 08:28 Ferrous Gluconate 324 Mg Tablet PO 324 mg DAILYWM MEGAN Administration Gabapentin 1,200 mg 05/04/24 21:00 05/05/24 21:03 Gabapentin 300 Mg Capsule PO 1,200 mg HS MEGAN Administration Oxycodone HCl 5 mg 05/04/24 16:10 05/06/24 08:28 Oxycodone 5 Mg Tablet PO 5 mg Q6HR PRN Administration Severe Breakthrough pain(8-10) Polyethylene Glycol 17 gm 05/05/24 09:00 05/06/24 08:27 Polyethylene Glycol 3350 17 Gm Packet PO 17 gm DAILY MEGAN Administration Pramipexole Dihydrochloride 1 mg 05/04/24 21:00 05/05/24 21:03 Pramipexole 0.25 Mg Tablet PO 1 mg HS MEGAN Administration Senna 8.6 - 17.2 mg 05/06/24 08:14 05/06/24 11:55 Senna 8.6 Mg Tablet PO 17.2 mg DAILY MEGAN Administration Sodium Chloride 10 ml 05/04/24 12:49 05/04/24 13:52 Sodium Chloride Flush 0.9% 10 Ml Syringe IVP 10 ml PRN PRN Administration NEEDED PER PROVIDER ORDERS Sodium Chloride 10 ml 05/04/24 17:00 05/06/24 08:32 Sodium Chloride Flush 0.9% 10 Ml Syringe IVP 10 ml 0100,0900,1700 MEGAN Administration Tamsulosin HCl 0.4 mg 05/04/24 21:00 05/05/24 21:04 Tamsulosin 0.4 Mg Capsule PO 0.4 mg HS MEGAN Administration - Lab Result Fish Bone Diagrams: 05/06/24 04:45 05/06/24 04:45 - Additional Planning My Orders: My Active Orders 05/06/24 08:00 Ferrous Gluconate [Fergon] 324 mg PO DAILYWM 05/06/24 08:14 Senna [Senokot] 8.6 - 17.2 mg PO DAILY 05/06/24 21:00 Midodrine [ProAmatine] 2.5 mg PO BID 05/07/24 05:00 BMP - BASIC METABOLIC PANEL [CHEM] DAILYLAB CBC [CBC - COMP BLD CT W/AUTO DIFF] [HEME] DAILYLAB 05/08/24 05:00 BMP - BASIC METABOLIC PANEL [CHEM] DAILYLAB CBC [CBC - COMP BLD CT W/AUTO DIFF] [HEME] DAILYLAB 05/09/24 05:00 BMP - BASIC METABOLIC PANEL [CHEM] DAILYLAB CBC [CBC - COMP BLD CT W/AUTO DIFF] [HEME] DAILYLAB Subjective - Subjective Patient Reports: Feeling Better, Resting Comfortably, No Complaints Objective Vital Signs: Vital Signs - 24 hr 05/05/24 05/06/24 05/06/24 16:08 00:00 07:54 Temperature 37.5 C 37.2 C 36.7 C Heart Rate [ 71 71 68 Brachial] Respiratory 24 22 16 Rate Blood Pressure 126/55 L 115/50 L 122/62 [Right Brachial artery] O2 Saturation 94 92 93 Oxygen O2 Source Room air I&O (Last 24 Hrs): Intake and Output Totals x24h 05/04/24 05/05/24 05/06/24 23:59 23:59 23:59 Intake Total 250 2540 2823.15 Output Total 700 3330 2395 Balance -450 -790 428.15 General: Alert, Oriented x3, Cooperative, No acute distress Neuro: Alert, CN 2-12 Grossly Intact, Oriented Times 3 Cardiovascular: Regular rate, Normal S1, Normal S2, No murmurs Respiratory: Chest non-tender, No respiratory distress, Breath sounds nml Abdomen: Normal bowel sounds, Soft, No tenderness, No hepatospenomegaly, No masses - Results Results: Laboratory Results WBC 10.2 x10^3/uL (4.8-10.8) 05/06/24 04:45 RBC 3.03 10^6/uL (4.70-6.10) L 05/06/24 04:45 Hgb 8.9 g/dL (14.0-18.0) L 05/06/24 04:45 Hct 27.4 % (42.0-52.0) L 05/06/24 04:45 MCV 90.4 fL (80.0-94.0) 05/06/24 04:45 MCH 29.4 pg (27.0-31.0) 05/06/24 04:45 MCHC 32.5 g/dL (32.0-36.0) 05/06/24 04:45 RDW 13.0 % (12.0-15.0) 05/06/24 04:45 Plt Count 126 10^3/uL (130-450) L 05/06/24 04:45 MPV 11.0 fL (7.4-11.4) 05/06/24 04:45 Neut # (Auto) 7.4 10^3/uL (1.5-6.6) H 05/06/24 04:45 Lymph # (Auto) 1.4 10^3/uL (1.5-3.5) L 05/06/24 04:45 [place] # (Auto) 1.1 10^3/uL (0.0-1.0) H 05/06/24 04:45 Eos # (Auto) 0.1 10^3/uL (0.0-0.7) 05/06/24 04:45 Baso # (Auto) 0.0 10^3/uL (0.0-0.1) 05/06/24 04:45 Absolute Nucleated RBC 0.00 x10^3/uL 05/06/24 04:45 Nucleated RBC % 0.0 /100WBC 05/06/24 04:45 PT 12.4 secs (9.9-12.6) 05/04/24 13:06 INR 1.1 (0.8-1.2) 05/04/24 13:06 Sodium 138 mmol/L (135-145) 05/06/24 04:45 Potassium 4.1 mmol/L (3.5-4.5) 05/06/24 04:45 Chloride 108 mmol/L (101-111) 05/06/24 04:45 Carbon Dioxide 26 mmol/L (21-32) 05/06/24 04:45 Anion Gap 4.0 (6-13) L 05/06/24 04:45 BUN 26 mg/dL (6-20) H 05/06/24 04:45 Creatinine 1.5 mg/dL (0.6-1.3) H 05/06/24 04:45 Estimated GFR (MDRD) 45 (>89) L 05/06/24 04:45 Glucose 118 mg/dL (74-104) H 05/06/24 04:45 Calcium 8.6 mg/dL (8.5-10.3) 05/06/24 04:45 Total Bilirubin 0.6 mg/dL (0.2-1.0) 05/04/24 13:06 AST 16 IU/L (10-42) 05/04/24 13:06 ALT 9 IU/L (10-60) L 05/04/24 13:06 Alkaline Phosphatase 45 IU/L (42-121) 05/04/24 13:06 Total Protein 5.9 g/dL (6.4-8.9) L 05/04/24 13:06 Albumin 3.6 g/dL (3.2-5.5) 05/04/24 13:06 Globulin 2.3 g/dL (2.1-4.2) 05/04/24 13:06 Albumin/Globulin Ratio 1.6 (1.0-2.2) 05/04/24 13:06 Blood Type O POSITIVE 05/05/24 05:46 Blood Type Recheck O POSITIVE 05/05/24 08:38 Antibody Screen NEGATIVE 05/05/24 05:46
[2024-05-06] MEDS: MIDODRINE 2.5 MG TABLET PO SCH (20:52)
[2024-05-07 05:45] LABS: BASOPHILS % (AUTO) 0.1 %; EOSINOPHILS # (AUTO) 0.2 10^3/uL (0.0-0.7); EOSINOPHILS % (AUTO) 2.4 %; HCT - HEMATOCRIT 26.5 % (42.0-52.0); HGB - HEMOGLOBIN 8.7 g/dL (14.0-18.0); LYMPHOCYTES # (AUTO) 1.5 10^3/uL (1.5-3.5); MEAN CORPUSCULAR HEMOGLOBIN 29.4 pg (27.0-31.0); MEAN CORPUSCULAR HGB CONC 32.8 g/dL (32.0-36.0); MEAN CORPUSCULAR VOLUME 89.5 fL (80.0-94.0); MEAN PLATELET VOLUME 10.3 fL (7.4-11.4); MONOCYTES # (AUTO) 0.9 10^3/uL (0.0-1.0); MONOCYTES % (AUTO) 9.9 %; NEUTROPHILS # (AUTO) 6.8 10^3/uL (1.5-6.6); NEUTROPHILS % (AUTO) 71.3 %; PLT - PLATELET COUNT 122 10^3/uL (130-450); RED BLOOD COUNT 2.96 10^6/uL (4.70-6.10); RED CELL DISTRIBUTION WIDTH 12.8 % (12.0-15.0); WHITE BLOOD COUNT 9.5 x10^3/uL (4.8-10.8)
[2024-05-07 06:10] LABS: CALCIUM 8.7 mg/dL (8.5-10.3); CREATININE 1.4 mg/dL (0.6-1.3); POTASSIUM 4.1 mmol/L (3.5-4.5)
--- NOTE | 2024-05-07 09:42 | PROVIDER PROGRESS NOTE ---
Subjective - Prog Note Date Prog Note Date: 05/07/24 Prog Note Time: 09:39 - Subjective Pt reports feeling: Improved Objective - Vital Signs/Intake & Output Vital Signs: Vital Signs x48h Temp Pulse Resp BP Pulse Ox 05/07/24 08:00 36.7 C 66 16 134/60 H 95 Intake & Output: Intake & Output 05/04/24 05/05/24 05/06/24 05/07/24 23:59 23:59 23:59 23:59 Intake Total 250 2540 3580.00 Output Total 700 3330 3495 900 Balance -450 -790 85.00 -900 - Lab Results Fish Bones: 05/07/24 05:35 05/07/24 05:35 Other Labs: Lab Results x24hrs 05/07/24 05/07/24 Range/Units 05:35 05:35 WBC 9.5 (4.8-10.8) x10^3/uL RBC 2.96 L (4.70-6.10) 10^6/uL Hgb 8.7 L (14.0-18.0) g/dL Hct 26.5 L (42.0-52.0) % MCV 89.5 (80.0-94.0) fL MCH 29.4 (27.0-31.0) pg MCHC 32.8 (32.0-36.0) g/dL RDW 12.8 (12.0-15.0) % Plt Count 122 L (130-450) 10^3/uL MPV 10.3 (7.4-11.4) fL Neut # (Auto) 6.8 H (1.5-6.6) 10^3/uL Lymph # (Auto) 1.5 (1.5-3.5) 10^3/uL [place] # (Auto) 0.9 (0.0-1.0) 10^3/uL Eos # (Auto) 0.2 (0.0-0.7) 10^3/uL Baso # (Auto) 0.0 (0.0-0.1) 10^3/uL Absolute Nucleated RBC 0.00 x10^3/uL Nucleated RBC % 0.0 /100WBC Sodium 137 (135-145) mmol/L Potassium 4.1 (3.5-4.5) mmol/L Chloride 107 (101-111) mmol/L Carbon Dioxide 26 (21-32) mmol/L Anion Gap 4.0 L (6-13) BUN 26 H (6-20) mg/dL Creatinine 1.4 H (0.6-1.3) mg/dL Estimated GFR (MDRD) 49 L (>89) Glucose 107 H (74-104) mg/dL Calcium 8.7 (8.5-10.3) mg/dL - Other Results/Comments Other Results/Comments: Examination: Patient's hip wound dressings were intact. Minimal pain with hip rotation. Moves his toes on command. Sensation intact throughout. Patient sitting up in a chair eating breakfast without any problems Laboratory: Hematocrit 27; hemoglobin 8.7 Assessment/Plan - Problem List (1) Closed left hip fracture Impression: Satisfactory postop course. Plan: Patient will be seen by physical therapist later today. May continue ambulating with a walker weightbearing as tolerated on his fractured extremity. Depending on his level independence per the physical therapist he will likely be discharged either later today or tomorrow. He will follow-up in orthopedic clinic in about 2 weeks time for wound check skin staple removal and x-rays. I will see him in my clinic in a month's time for pre-clinic set x-rays of his hip. Qualifiers: Encounter type: initial encounter Qualified Code(s): S72.002A - Fracture of unspecified part of neck of left femur, initial encounter for closed fracture
--- NOTE | 2024-05-07 13:52 | PROVIDER PROGRESS NOTE ---
Assessment/Plan - Problem List (1) Closed left hip fracture Qualifiers: Encounter type: initial encounter Qualified Code(s): S72.002A - Fracture of unspecified part of neck of left femur, initial encounter for closed fracture Assessment/Plan: (1) Closed left hip fracture Conclusion/Plan: --Underwent Closed reduction and long InterTAN nailing of left intertrochanteric/subtrochanteric hip fracture --DVT ppx with ASA --Continue to monitor post-op hemoglobin. --Plan for PT/OT on Tuesday. Qualifiers: Encounter type: initial encounter Qualified Code(s): S72.002A - Fracture of unspecified part of neck of left femur, initial encounter for closed fracture (2) CKD (chronic kidney disease) Conclusion/Plan: --Renal function at his baseline. (3) HTN (hypertension) Conclusion/Plan: --Continue home amlodipine. Blood pressures are normotensive today. --He is having some orthostasis likely from the tamsulosin. Will trial him on Midodrine twice daily while he is inpatient. This can be discontinued on discharge. (4) Acute urinary retention --History of BPH. Continue tamsulosin. --Resolved. Dispo: Inpatient until evaluated by PT/OT on Tuesday. Otherwise medically stable. - Current Meds Current Meds: Current Medications Generic Name Dose Route Start Last Admin Trade Name Artemioq PRN Reason Stop Dose Admin Aspirin 81 mg 05/05/24 09:00 05/07/24 09:01 Aspirin Ec 81 Mg Tablet PO 81 mg BID MEGAN Administration Docusate Sodium 100 mg 05/04/24 16:10 05/06/24 08:27 Docusate Sodium 100 Mg Capsule PO 100 mg BID PRN Administration Constipation Ferrous Gluconate 324 mg 05/06/24 08:00 05/07/24 09:01 Ferrous Gluconate 324 Mg Tablet PO 324 mg DAILYWM MEGAN Administration Gabapentin 1,200 mg 05/04/24 21:00 05/06/24 20:53 Gabapentin 300 Mg Capsule PO 1,200 mg HS MEGAN Administration Midodrine 2.5 mg 05/06/24 21:00 05/07/24 09:01 Midodrine 2.5 Mg Tablet PO 2.5 mg BID MEGAN Administration Oxycodone HCl 5 mg 05/04/24 16:10 05/06/24 08:28 Oxycodone 5 Mg Tablet PO 5 mg Q6HR PRN Administration Severe Breakthrough pain(8-10) Polyethylene Glycol 17 gm 05/05/24 09:00 05/07/24 09:00 Polyethylene Glycol 3350 17 Gm Packet PO 17 gm DAILY MEGAN Administration Pramipexole Dihydrochloride 1 mg 05/04/24 21:00 05/06/24 20:52 Pramipexole 0.25 Mg Tablet PO 1 mg HS MEGAN Administration Senna 8.6 - 17.2 mg 05/06/24 08:14 05/07/24 09:01 Senna 8.6 Mg Tablet PO 8.6 mg DAILY MEGAN Administration Sodium Chloride 10 ml 05/04/24 12:49 05/04/24 13:52 Sodium Chloride Flush 0.9% 10 Ml Syringe IVP 10 ml PRN PRN Administration NEEDED PER PROVIDER ORDERS Sodium Chloride 10 ml 05/04/24 17:00 05/07/24 09:02 Sodium Chloride Flush 0.9% 10 Ml Syringe IVP 10 ml 0100,0900,1700 MEGAN Administration Tamsulosin HCl 0.4 mg 05/04/24 21:00 05/06/24 20:52 Tamsulosin 0.4 Mg Capsule PO 0.4 mg HS MEGAN Administration - Lab Result Fish Bone Diagrams: 05/07/24 05:35 05/07/24 05:35 - Additional Planning My Orders: My Active Orders 05/06/24 13:25 CUL,WOUND (AEROBIC) [RM] Routine 05/06/24 21:00 Midodrine [ProAmatine] 2.5 mg PO BID 05/07/24 10:00 Calcium Carbonate [Tums] 500 mg PO BID Cholecalciferol [Vitamin D3] 50 mcg PO DAILY 05/08/24 05:00 BMP - BASIC METABOLIC PANEL [CHEM] DAILYLAB CBC [CBC - COMP BLD CT W/AUTO DIFF] [HEME] DAILYLAB 05/09/24 05:00 BMP - BASIC METABOLIC PANEL [CHEM] DAILYLAB CBC [CBC - COMP BLD CT W/AUTO DIFF] [HEME] DAILYLAB Subjective - Subjective Patient Reports: Feeling Better, Resting Comfortably, No Complaints Objective Vital Signs: Vital Signs - 24 hr 05/06/24 05/06/24 05/06/24 16:00 16:05 20:57 Temperature 36.6 C Heart Rate [ 68 Brachial] Heart Rate [ Sitting] Heart Rate [ Standing] Heart Rate [ Supine] Respiratory 23 Rate Blood Pressure [Left Brachial artery] Blood Pressure 122/54 L 116/46 L 139/63 H [Right Brachial artery] Blood Pressure [Sitting] Blood Pressure [Standing] Blood Pressure [Supine] O2 Saturation 95 O2 Saturation [ Sitting] O2 Saturation [ Standing] O2 Saturation [ Supine] 05/06/24 05/06/24 05/07/24 22:45 22:51 00:00 Temperature 37.4 C Heart Rate [ 71 Brachial] Heart Rate [ Sitting] Heart Rate [ Standing] Heart Rate [ Supine] Respiratory 20 Rate Blood Pressure [Left Brachial artery] Blood Pressure 120/52 L 118/52 L 128/58 L [Right Brachial artery] Blood Pressure [Sitting] Blood Pressure [Standing] Blood Pressure [Supine] O2 Saturation 94 O2 Saturation [ Sitting] O2 Saturation [ Standing] O2 Saturation [ Supine] 05/07/24 05/07/24 05/07/24 08:00 11:17 11:21 Temperature 36.7 C Heart Rate [ 66 Brachial] Heart Rate [ 74 74 Sitting] Heart Rate [ 77 77 Standing] Heart Rate [ 67 67 Supine] Respiratory 16 Rate Blood Pressure 134/60 H [Left Brachial artery] Blood Pressure [Right Brachial artery] Blood Pressure 131/58 H 131/58 H [Sitting] Blood Pressure 108/54 L 108/54 L [Standing] Blood Pressure 154/58 H 154/58 H [Supine] O2 Saturation 95 O2 Saturation [ 96 Sitting] O2 Saturation [ 97 Standing] O2 Saturation [ 97 Supine] Oxygen O2 Source Room air I&O (Last 24 Hrs): Intake and Output Totals x24h 05/05/24 05/06/24 05/07/24 23:59 23:59 23:59 Intake Total 2540 3580.00 720 Output Total 3330 3495 1725 Balance -790 85.00 -1005 General: Alert, Oriented x3, Cooperative, No acute distress Cardiovascular: Regular rate, Normal S1, Normal S2, No murmurs Respiratory: Chest non-tender, No respiratory distress, Breath sounds nml Abdomen: Normal bowel sounds, Soft, No tenderness, No hepatospenomegaly, No masses - Results Results: Laboratory Results WBC 9.5 x10^3/uL (4.8-10.8) 05/07/24 05:35 RBC 2.96 10^6/uL (4.70-6.10) L 05/07/24 05:35 Hgb 8.7 g/dL (14.0-18.0) L 05/07/24 05:35 Hct 26.5 % (42.0-52.0) L 05/07/24 05:35 MCV 89.5 fL (80.0-94.0) 05/07/24 05:35 MCH 29.4 pg (27.0-31.0) 05/07/24 05:35 MCHC 32.8 g/dL (32.0-36.0) 05/07/24 05:35 RDW 12.8 % (12.0-15.0) 05/07/24 05:35 Plt Count 122 10^3/uL (130-450) L 05/07/24 05:35 MPV 10.3 fL (7.4-11.4) 05/07/24 05:35 Neut # (Auto) 6.8 10^3/uL (1.5-6.6) H 05/07/24 05:35 Lymph # (Auto) 1.5 10^3/uL (1.5-3.5) 05/07/24 05:35 [place] # (Auto) 0.9 10^3/uL (0.0-1.0) 05/07/24 05:35 Eos # (Auto) 0.2 10^3/uL (0.0-0.7) 05/07/24 05:35 Baso # (Auto) 0.0 10^3/uL (0.0-0.1) 05/07/24 05:35 Absolute Nucleated RBC 0.00 x10^3/uL 05/07/24 05:35 Nucleated RBC % 0.0 /100WBC 05/07/24 05:35 PT 12.4 secs (9.9-12.6) 05/04/24 13:06 INR 1.1 (0.8-1.2) 05/04/24 13:06 Sodium 137 mmol/L (135-145) 05/07/24 05:35 Potassium 4.1 mmol/L (3.5-4.5) 05/07/24 05:35 Chloride 107 mmol/L (101-111) 05/07/24 05:35 Carbon Dioxide 26 mmol/L (21-32) 05/07/24 05:35 Anion Gap 4.0 (6-13) L 05/07/24 05:35 BUN 26 mg/dL (6-20) H 05/07/24 05:35 Creatinine 1.4 mg/dL (0.6-1.3) H 05/07/24 05:35 Estimated GFR (MDRD) 49 (>89) L 05/07/24 05:35 Glucose 107 mg/dL (74-104) H 05/07/24 05:35 Calcium 8.7 mg/dL (8.5-10.3) 05/07/24 05:35 Total Bilirubin 0.6 mg/dL (0.2-1.0) 05/04/24 13:06 AST 16 IU/L (10-42) 05/04/24 13:06 ALT 9 IU/L (10-60) L 05/04/24 13:06 Alkaline Phosphatase 45 IU/L (42-121) 05/04/24 13:06 Total Protein 5.9 g/dL (6.4-8.9) L 05/04/24 13:06 Albumin 3.6 g/dL (3.2-5.5) 05/04/24 13:06 Globulin 2.3 g/dL (2.1-4.2) 05/04/24 13:06 Albumin/Globulin Ratio 1.6 (1.0-2.2) 05/04/24 13:06 Blood Type O POSITIVE 05/05/24 05:46 Blood Type Recheck O POSITIVE 05/05/24 08:38 Antibody Screen NEGATIVE 05/05/24 05:46
[2024-05-07] MEDS: CHOLECALCIFEROL 25 MCG TABLET PO SCH (14:06)
[2024-05-07] MEDS: CALCIUM CARBONATE CHEW 500 MG TABLET PO SCH (14:06)
--- NOTE | 2024-05-08 12:20 | PROVIDER PROGRESS NOTE ---
Assessment/Plan - Problem List (1) Closed left hip fracture Qualifiers: Encounter type: initial encounter Qualified Code(s): S72.002A - Fracture of unspecified part of neck of left femur, initial encounter for closed fracture Assessment/Plan: (1) Closed left hip fracture Conclusion/Plan: --Underwent Closed reduction and long InterTAN nailing of left intertrochanteric/subtrochanteric hip fracture --DVT ppx with ASA --Continue to monitor post-op hemoglobin. --Plan for PT/OT on Tuesday. Qualifiers: Encounter type: initial encounter Qualified Code(s): S72.002A - Fracture of unspecified part of neck of left femur, initial encounter for closed fracture (2) CKD (chronic kidney disease) Conclusion/Plan: --Renal function at his baseline. (3) HTN (hypertension) Conclusion/Plan: --Continue home amlodipine. Blood pressures are normotensive today. --He is having some orthostasis likely from the tamsulosin. Will trial him on Midodrine twice daily while he is inpatient. This can be discontinued on discharge. (4) Acute urinary retention --History of BPH. Continue tamsulosin. --Resolved. Dispo: Patient will be a swing bed patient once insurance authorization is approved. - Current Meds Current Meds: Current Medications Generic Name Dose Route Start Last Admin Trade Name Artemioq PRN Reason Stop Dose Admin Aspirin 81 mg 05/05/24 09:00 05/08/24 08:41 Aspirin Ec 81 Mg Tablet PO 81 mg BID MEGAN Administration Calcium Carbonate/Glycine 500 mg 05/07/24 10:00 05/08/24 08:39 Calcium Carbonate Chew 500 Mg Tablet PO 500 mg BID MEGAN Administration Cholecalciferol 50 mcg 05/07/24 10:00 05/08/24 08:41 Cholecalciferol 25 Mcg Tablet PO 50 mcg DAILY MEGAN Administration Docusate Sodium 100 mg 05/04/24 16:10 05/06/24 08:27 Docusate Sodium 100 Mg Capsule PO 100 mg BID PRN Administration Constipation Ferrous Gluconate 324 mg 05/06/24 08:00 05/08/24 08:41 Ferrous Gluconate 324 Mg Tablet PO 324 mg DAILYWM MEGAN Administration Gabapentin 1,200 mg 05/04/24 21:00 05/07/24 20:28 Gabapentin 300 Mg Capsule PO 1,200 mg HS MEGAN Administration Midodrine 2.5 mg 05/06/24 21:00 05/08/24 08:39 Midodrine 2.5 Mg Tablet PO 2.5 mg BID MEGAN Administration Oxycodone HCl 5 mg 05/04/24 16:10 05/06/24 08:28 Oxycodone 5 Mg Tablet PO 5 mg Q6HR PRN Administration Severe Breakthrough pain(8-10) Polyethylene Glycol 17 gm 05/05/24 09:00 05/08/24 08:38 Polyethylene Glycol 3350 17 Gm Packet PO 17 gm DAILY MEGAN Administration Pramipexole Dihydrochloride 1 mg 05/04/24 21:00 05/07/24 20:29 Pramipexole 0.25 Mg Tablet PO 1 mg HS MEGAN Administration Senna 8.6 - 17.2 mg 05/06/24 08:14 05/08/24 08:41 Senna 8.6 Mg Tablet PO 8.6 mg DAILY MEGAN Administration Sodium Chloride 10 ml 05/04/24 12:49 05/04/24 13:52 Sodium Chloride Flush 0.9% 10 Ml Syringe IVP 10 ml PRN PRN Administration NEEDED PER PROVIDER ORDERS Sodium Chloride 10 ml 05/04/24 17:00 05/08/24 08:42 Sodium Chloride Flush 0.9% 10 Ml Syringe IVP Not Given 0100,0900,1700 MEGAN Tamsulosin HCl 0.4 mg 05/04/24 21:00 05/07/24 20:28 Tamsulosin 0.4 Mg Capsule PO 0.4 mg HS MEGAN Administration - Lab Result Fish Bone Diagrams: 05/07/24 05:35 05/07/24 05:35 Subjective - Subjective Patient Reports: Feeling Better, Resting Comfortably, No Complaints Objective Vital Signs: Vital Signs - 24 hr 05/07/24 05/07/24 05/08/24 16:00 23:38 08:00 Temperature 36.7 C 37.3 C 36.6 C Heart Rate [ 67 68 68 Brachial] Respiratory 18 16 16 Rate Blood Pressure 127/63 [Left Brachial artery] Blood Pressure 134/57 H 129/65 [Right Brachial artery] O2 Saturation 98 96 96 Oxygen O2 Source Room air I&O (Last 24 Hrs): Intake and Output Totals x24h 05/06/24 05/07/24 05/08/24 23:59 23:59 23:59 Intake Total 3580.00 1620 480 Output Total 3495 3565 1620 Balance 85.00 -1005 -1140 General: Alert, Oriented x3, Cooperative, No acute distress Neuro: Alert, CN 2-12 Grossly Intact, Oriented Times 3 Cardiovascular: Regular rate, Normal S1, Normal S2, No murmurs Respiratory: Chest non-tender, No respiratory distress, Breath sounds nml - Results Results: Laboratory Results WBC 9.5 x10^3/uL (4.8-10.8) 05/07/24 05:35 RBC 2.96 10^6/uL (4.70-6.10) L 05/07/24 05:35 Hgb 8.7 g/dL (14.0-18.0) L 05/07/24 05:35 Hct 26.5 % (42.0-52.0) L 05/07/24 05:35 MCV 89.5 fL (80.0-94.0) 05/07/24 05:35 MCH 29.4 pg (27.0-31.0) 05/07/24 05:35 MCHC 32.8 g/dL (32.0-36.0) 05/07/24 05:35 RDW 12.8 % (12.0-15.0) 05/07/24 05:35 Plt Count 122 10^3/uL (130-450) L 05/07/24 05:35 MPV 10.3 fL (7.4-11.4) 05/07/24 05:35 Neut # (Auto) 6.8 10^3/uL (1.5-6.6) H 05/07/24 05:35 Lymph # (Auto) 1.5 10^3/uL (1.5-3.5) 05/07/24 05:35 [facility] # (Auto) 0.9 10^3/uL (0.0-1.0) 05/07/24 05:35 Eos # (Auto) 0.2 10^3/uL (0.0-0.7) 05/07/24 05:35 Baso # (Auto) 0.0 10^3/uL (0.0-0.1) 05/07/24 05:35 Absolute Nucleated RBC 0.00 x10^3/uL 05/07/24 05:35 Nucleated RBC % 0.0 /100WBC 05/07/24 05:35 PT 12.4 secs (9.9-12.6) 05/04/24 13:06 INR 1.1 (0.8-1.2) 05/04/24 13:06 Sodium 137 mmol/L (135-145) 05/07/24 05:35 Potassium 4.1 mmol/L (3.5-4.5) 05/07/24 05:35 Chloride 107 mmol/L (101-111) 05/07/24 05:35 Carbon Dioxide 26 mmol/L (21-32) 05/07/24 05:35 Anion Gap 4.0 (6-13) L 05/07/24 05:35 BUN 26 mg/dL (6-20) H 05/07/24 05:35 Creatinine 1.4 mg/dL (0.6-1.3) H 05/07/24 05:35 Estimated GFR (MDRD) 49 (>89) L 05/07/24 05:35 Glucose 107 mg/dL (74-104) H 05/07/24 05:35 Calcium 8.7 mg/dL (8.5-10.3) 05/07/24 05:35 Total Bilirubin 0.6 mg/dL (0.2-1.0) 05/04/24 13:06 AST 16 IU/L (10-42) 05/04/24 13:06 ALT 9 IU/L (10-60) L 05/04/24 13:06 Alkaline Phosphatase 45 IU/L (42-121) 05/04/24 13:06 Total Protein 5.9 g/dL (6.4-8.9) L 05/04/24 13:06 Albumin 3.6 g/dL (3.2-5.5) 05/04/24 13:06 Globulin 2.3 g/dL (2.1-4.2) 05/04/24 13:06 Albumin/Globulin Ratio 1.6 (1.0-2.2) 05/04/24 13:06 Blood Type O POSITIVE 05/05/24 05:46 Blood Type Recheck O POSITIVE 05/05/24 08:38 Antibody Screen NEGATIVE 05/05/24 05:46
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
[2024-05-08 16:01] VITALS: BP 137/53; O2SAT 98
== END 2024-05-08 16:04 | disposition swing bed (61) | DRG 482 ==
LOC: EDUNIT# → ED 12:14 → MS2 12:49
PROVIDERS: ADMIT Family Medicine; ATTEND Family Medicine
PROC: 0QS734Z Reposition Left Upper Femur with Internal Fixation Device, Percutaneous Approach (ICD-10-PCS; principal; 2024-05-04 14:00)
DX: S72.142A Displaced intertrochanteric fracture of left femur, initial encounter for closed fracture (principal); V18.0XXA Pedal cycle driver injured in noncollision transport accident in nontraffic accident, initial encounter; Y93.55 Activity, bike riding; I12.9 Hypertensive chronic kidney disease with stage 1 through stage 4 chronic kidney disease, or unspecified chronic kidney disease; N18.9 Chronic kidney disease, unspecified; G25.81 Restless legs syndrome; N40.1 Benign prostatic hyperplasia with lower urinary tract symptoms; R33.8 Other retention of urine
CPT/HCPCS: 36415; 73502; 80048; 80053; 85025; 85610; 86850; 86900; 86901; 87070; 87205; 97116; 97162; 97166; 97530; 99285; A9270; J0131; J1170; J7120

== ENCOUNTER 2024-05-08 14:56 | Inpatient (IN) | payer MEDICARE ==
[2024-05-08] MEDS: GABAPENTIN 300 MG CAPSULE PO SCH (20:47)
[2024-05-08] MEDS: PRAMIPEXOLE 0.25 MG TABLET PO SCH (20:47)
[2024-05-08] MEDS: TAMSULOSIN 0.4 MG CAPSULE PO SCH (20:47)
[2024-05-08] MEDS: amLODIPine 5 MG TABLET PO SCH (20:47)
[2024-05-08] MEDS ORDERED: VIT E PO SCH (21:00)
[2024-05-08] MEDS ORDERED: VIT C PO SCH (21:00)
[2024-05-08] MEDS ORDERED: [UNRECOGNIZED DRUG - OTHER] PO SCH (21:00)
[2024-05-08] MEDS ORDERED: COPPER PO SCH (21:00)
[2024-05-08] MEDS ORDERED: VIT A PO SCH (21:00)
[2024-05-08] MEDS ORDERED: ZINC PO SCH (21:00)
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
[2024-05-09] MEDS: ACETAMINOPHEN 325 MG TABLET PO PRN (18:48)
[2024-05-10] MEDS: CALCIUM CARBONATE CHEW 500 MG TABLET PO SCH (11:09)
[2024-05-10] MEDS: CHOLECALCIFEROL 25 MCG TABLET PO SCH (11:09)
[2024-05-10] MEDS: SENNA 8.6 MG TABLET PO SCH (11:54)
[2024-05-10] MEDS: DOCUSATE SODIUM 250 MG CAPSULE PO SCH (11:54)
[2024-05-10] MEDS: GABAPENTIN 400 MG CAPSULE PO SCH (21:54)
[2024-05-11 08:09] VITALS: BP 130/60; O2SAT 95
[2024-05-11] MEDS: HYDROcod/ACETAM 10 MG/325 MG TABLET PO PRN (10:11)
--- NOTE | 2024-05-11 14:32 | Discharge Plan ---
Discharge Plan Problem Reviewed?: Yes Disposition: Home Health Service Condition: Fair Prescriptions: HYDROcodone/ACET 10/325 [Cameron 10 mg/325 mg] 1 tab PO Q4HR PRN #30 tab PRN Reason: Pain 8 to 10 Docusate Sodium 250Mg Capsule [Colace 250Mg Capsule] 100 - 500 mg PO DAILY #30 cap Senna [Senokot] 8.6 - 17.2 mg PO DAILY #60 tab Cholecalciferol [Vitamin D3] 25 mcg PO DAILY #30 tab Diet: Regular Activity Restrictions: Activity as Tolerated Shower Restrictions: No Driving Restrictions: No Assistance Devices: Walker Weight Bearing: Full Weight Health Concerns: Continue PT/OT and follow up with Orthopedics and primary care in 1-2 weeks Assessment: 1. Intertrochanteric fracture of the left hip S/P repair. Doing well and cleared by PT/OT to go home. He should follow up with PCP and orthopedics in 1-2 weeks 2. Chronic kidney disease stage III Stable 3. BPH Continue Flomax 4. Restless leg syndrome Continue pramipexole 5. Hypertension Continue amlodipine. His lisinopril will be held for now No Smoking: If you smoke, Please STOP! Call for help.
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
== END 2024-05-11 16:50 | disposition home health service (06) | DRG 561 ==
LOC: EDSTATUS 14:56 → MS2 16:55
PROVIDERS: ADMIT Physician Assistant; ATTEND Physician Assistant
DX: S72.142D Displaced intertrochanteric fracture of left femur, subsequent encounter for closed fracture with routine healing (principal); I12.9 Hypertensive chronic kidney disease with stage 1 through stage 4 chronic kidney disease, or unspecified chronic kidney disease; N18.30 Chronic kidney disease, stage 3 unspecified; N40.0 Benign prostatic hyperplasia without lower urinary tract symptoms; G25.81 Restless legs syndrome; V19.9XXD Pedal cyclist (driver) (passenger) injured in unspecified traffic accident, subsequent encounter

== ENCOUNTER 2024-06-05 17:02 | Outpatient (CLI) | payer MEDICARE ==
--- NOTE | 2024-06-06 12:55 | XRAY Report ---
Hip w/Pelvis 2-3V LT HISTORY: 83 years of age, DISPLACED INTERTROCHANTERIC GRACTURE OF LEFT FEMUR TECHNIQUE: Hip w/Pelvis 2-3V LT COMPARISON: 05/04/2024. FINDINGS/IMPRESSION: Interval cephalomedullary fixation of the left femur, partially visualized, transfixing an intertroch anteric fracture of the left femur, in near-anatomic alignment. No hardware complication in the visua lized portion. 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 Joint spa maggi of bilateral hips are grossly well maintained. Reviewed by: Krystal Lucas MD on 06/06/2024 12:54 PM PDT Approved by: Krystal Lucas MD on 06/06/2024 12:54 PM PDT Station ID: [id number]
== END 2024-06-05 17:03 | disposition home or self-care (01) ==
LOC: DI 17:02
PROVIDERS: ATTEND Orthopaedic Surgery
DX: S72.142D Displaced intertrochanteric fracture of left femur, subsequent encounter for closed fracture with routine healing (principal); M11.252 Other chondrocalcinosis, left hip; M11.251 Other chondrocalcinosis, right hip

== ENCOUNTER 2024-07-12 08:00 | Outpatient (CLI) | payer MEDICARE ==
--- NOTE | 2024-07-12 16:50 | XRAY Report ---
PROCEDURE: Hip w/Pelvis 1V LT INDICATIONS: DISPLACED INTERTROCHANTERIC FX OF LEFT FEMUR TECHNIQUE: AP pelvis with lateral view(s) of the hip(s). COMPARISON: 06/05/2024 and 05/04/2024. FINDINGS: Bones: Post-ORIF changes are seen in left proximal femur with intramedullary dale and dynamic screw i n place. Interval further healing at proximal humeral shaft/intertrochanteric fracture site is seen w ith increased sclerosis and partial bony union. No suspicious bony lesions. Soft tissues: No suspicious soft tissue calcifications or masses. IMPRESSION: Interval further healing at left proximal femoral/intertrochanteric fracture site with stable left hi p alignment. No new fracture or dislocation. No gross hardware loosening or failure. Reviewed by: Nolan Fish MD on 07/12/2024 4:48 PM PDT Approved by: Nolan Fish MD on 07/12/2024 4:48 PM PDT Station ID: [id number]
--- NOTE | 2024-07-12 16:54 | XRAY Report ---
PROCEDURE: Femur 2+V LT (Weight Bearing) INDICATIONS: DISPLACED INTERTROCHANTERIC FX OF LEFT FEMUR TECHNIQUE: 4 views of left femur were obtained. COMPARISON: Left hip radiograph from 06/05/2024, 05/04/2024. FINDINGS: There is prior fixation of left proximal femur is within intramedullary dale and dynamic screw in plac e. No evidence of gross hardware loosening or failure. There is interval further healing at proximal femoral shaft/intertrochanteric fracture site with incr eased sclerosis and partial bony union. No new fracture or dislocation. 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 No evidence of avascular necrosis of. IMPRESSION: Interval further healing at left proximal femoral fracture site with prior internal fixation. No aquilino s hardware loosening or failure. No new fracture or dislocation. Reviewed by: Nolan Fish MD on 07/12/2024 4:53 PM PDT Approved by: Nolan Fish MD on 07/12/2024 4:53 PM PDT Station ID: [id number]
== END 2024-07-12 23:59 | disposition home or self-care (01) ==
LOC: DI.WOS 08:00
PROVIDERS: ATTEND Orthopaedic Surgery
DX: S72.142D Displaced intertrochanteric fracture of left femur, subsequent encounter for closed fracture with routine healing (principal)